=== PATIENT | male | born 1965 | race Caucasian/White ===

== ENCOUNTER → 2017-08-26 | Day surgery (SDC) | payer OTHER ==
[2017-08-25 12:04] VITALS: BMI 38.7
[2017-08-26 07:51] VITALS: BP 129/96; TEMP 96.8
--- NOTE | 2017-08-26 10:19 | RAD ---
THORACIC AND CERVICAL MYELOGRAM INDICATION: Thoracic and cervical radiculopathy. PROCEDURE: After informed consent had been obtained, the patient was escorted to the interventional suite and pl aced on the procedural table. [employer] imaging was performed. The patient was placed into a prone posi tion. Skin on the low back was then prepped and draped in the standard sterile fashion and topical a nd regional soft tissue anesthesia was achieved with 1% lidocaine and sodium bicarbonate. L4-5 inte rlaminar approach was selected, and a 20-gauge needle was uneventfully advanced into the thecal sac w ith clear color CSF. Subsequently, 12 cc Isovue-M 300 was instilled into the thecal sac under real t danay fluoroscopy. Appropriate opacification of thecal sac demonstrated with imaging stored for [facility]. The needle was then removed from the patient. The patient tolerated the procedure well and was then transferred to CT to undergo subsequent myelogram. Reference separate report for reese jennings. IMPRESSION: Technically successful thoracic and cervical myelogram as detailed above. POS: [facility]
--- NOTE | 2017-08-26 11:08 | CT ---
POST MYELOGRAM CERVICAL SPINE CT: HISTORY: Cervical radiculopathy. COMPARISON: None. CORRELATION: A noncontrast cervical spine CT 02/24/17. TECHNIQUE: Post myelogram cervical spine CT is performed in the axial plane. Reformatted images are submitted f or interpretation. FINDINGS: Cervical spine vertebral body height is maintained. There is no fracture. Straightening of normal c ervical lordosis is noted. 2.1 mm of anterolisthesis of C3 upon C4. Appropriate articulation of the lateral masses of C1 and C2 as well as the facets. Odontoid process is intact. Visualized soft tissue neck structures are unremarkable. Limited evaluation of the oral cavity due t o dental amalgam artifact. Epiglottis has a normal caliber. C2-C3: No significant disk-osteophyte complex. No significant central canal stenosis. Mild right f oraminal narrowing. Left foramen is patent. There is right facet hypertrophy. C3-C4: No significant disk-osteophyte complex. No significant central canal stenosis. Foramen are patent. C4-C5: Broad-based disk-osteophyte complex abuts the thecal sac. Ventral subarachnoid space is main tained. Mild central canal stenosis. Degenerative changes of bilateral uncovertebral joints result in moderate bilateral foraminal narrowing. C5-C6: No significant disk-osteophyte complex. No significant central canal stenosis. Foramina are patent. C6-C7: No significant disk-osteophyte complex. No significant central canal stenosis. Right neural foramina is patent. Mild left foraminal narrowing. C7-T1: No significant disk-osteophyte complex. No significant central canal stenosis. The neural f oramen are patent. IMPRESSION: Degenerative change of the cervical spine as above. No high-grade central canal stenosis. There are varying degrees of foraminal narrowing as detailed above. POS: [facility]
--- NOTE | 2017-08-26 11:19 | CT ---
THORACIC SPINE CT MYELOGRAM CT THORACIC SPINE WITH CONTRAST: CLINICAL HISTORY: Back pain, radiculopathy, rib pain (M54.12; M54.14). FINDINGS: T1-2, T2-3, T3-4, T4-5, and T5-6 levels are unremarkable. T6-7: There is a small central disk protrusion without cord deformity. Mild effacement of ventral t hecal sac. T7-8: There is a left asymmetric disk-osteophyte complex with mild flattening of the left ventral he micord and mild central canal stenosis. T8-9: Central disk protrusion does produce central mass effect upon the ventral thoracic spinal cord mild to moderate in degree. T9-10: Mild left disk-osteophyte complex without significant cord deformity. T10-11: Mild ventral CHF effacement and slight left hemicord effacement by left asymmetric disk-oste ophyte. T11-12: No high-grade central canal or neural foraminal stenosis. T12-L1: No significant central canal stenosis. Throughout the thoracic spine there is no high-grade osseous compromise of the neural foramen. Cystic density is present, exophytic from the lateral confines of the right kidney, incompletely asse ssed by noncontrast CT imaging. Evidence of prior cholecystectomy. Small hiatal hernia. IMPRESSION: Multilevel degenerative change throughout the thoracic spine as outlined above with multilevel areas of disk protrusion and disk-osteophyte complex effacing the ventral aspect of the thoracic spinal cor d as discussed above. POS: [facility]
== END ==
LOC: CT 06:40
PROVIDERS: ATTEND Neurological Surgery
PROC: B02B1ZZ Computerized Tomography (CT Scan) of Spinal Cord using Low Osmolar Contrast (ICD-10-PCS; principal; 2017-08-26)
DX: M51.14 Intervertebral disc disorders with radiculopathy, thoracic region (principal); M54.12 Radiculopathy, cervical region; M48.02 Spinal stenosis, cervical region; Z88.8 Allergy status to other drugs, medicaments and biological substances
CPT/HCPCS: 62305; 72126; 72129

== ENCOUNTER 2017-08-28 13:27 | Emergency (ER) | payer OTHER, SELFPAY ==
[2017-08-28 13:52] LABS: #Basophils 0.1 thou/uL (0.0-0.2); #Eosinphils 0.1 thou/uL (0.0-0.7); #Lymphocytes 1.8 thou/uL (1.20-3.40); #Monocytes 0.7 thou/uL (0.11-0.59); #Neutrophils 4.3 thou/uL (1.40-6.50); %Basophils 1.3 % (0.0-1.0); %Eosinophils 1.3 % (0.0-10.0); %Lymphocytes 25.9 % (21.0-51.0); %Monocytes 9.8 % (0.0-10.0); %Neutrophils 61.7 % (42.0-75.0); Hemoglobin 17.8 g/dL (14.0-18.0); Mean Corpuscular HGB CONC 34.2 g/dL (32.0-36.0); Mean Corpuscular Hemoglobin 30.2 pg (27.0-31.0); Mean Corpuscular Volume 88.2 fl (80.0-94.0); Mean Platelet Volume 7.5 fL (7.4-10.4); Platelet Count 210 thou/uL (130-400); RBC Distribution Width 12.5 % (11.5-14.5); Red Blood Cell (RBC) Count 5.88 mill/uL (4.70-6.10); White Blood Cell (WBC) Count 6.9 thou/uL (4.8-10.8)
[2017-08-28 14:15] LABS: ALT (SGPT) 147 U/L (8-55); AST (SGOT) 66 U/L (5-34); Albumin 4.1 g/dL (3.5-5.0); Alkaline Phosphatase 77 U/L (40-150); Anion Gap 12 mmol/L (10-20); BUN (Urea Nitrogen) 11 mg/dL (8.4-25.7); Bilirubin, Total 1.1 mg/dL (0.2-1.2); Calc. Creatinine Clearance 0 mL/min (70-130); Calcium 9.5 mg/dL (7.8-10.44); Carbon Dioxide 31 mmol/L (22-29); Chloride 99 mmol/L (98-107); Estimated GFR-MDRD Greater than 90; Globulin 3.3 g/dL (2.4-3.5); Glucose 352 mg/dL (70-105); Potassium 3.8 mmol/L (3.5-5.1); Protein, Total 7.4 g/dL (6.0-8.3); Sodium 138 mmol/L (136-145)
[2017-08-28] MEDS ORDERED: Acetaminophen 500 MG TAB ONE (14:25)
[2017-08-28] MEDS ORDERED: diphenhydrAMINE 50 MG/ML VIAL ONE (14:25)
[2017-08-28] MEDS ORDERED: Metoclopramide HCl 10 MG/2 ML VIAL ONE (14:25)
[2017-08-28] MEDS ORDERED: methylPREDNISolone Sod Succ/PF 125 MG/2 ML VIAL ONE (16:31)
[2017-08-28] MEDS ORDERED: Magnesium Sulfate 2 GM/100 ML BAG ONE (16:32)
[2017-08-28] MEDS ORDERED: HYDROmorphone 0.5 MG/0.5 ML SYRINGE ONE (17:35)
[2017-08-28] MEDS ORDERED: Diazepam 5 MG TAB ONE ×2 (20:38)
== END 2017-08-28 20:40 | disposition home or self-care (01) ==
LOC: ERS 13:27
DX: G97.1 Other reaction to spinal and lumbar puncture (principal); Z79.891 Long term (current) use of opiate analgesic; Z79.899 Other long term (current) drug therapy
CPT/HCPCS: 80053; 85025; 96365; 96367; 96375; J1170; J1200; J2765; J2930; J3475

== ENCOUNTER → 2017-08-30 | Day surgery (SDC) | payer OTHER | LOC: SDC/OP 08:30 | PROVIDERS: ATTEND Anesthesiology | DX: G97.1 Other reaction to spinal and lumbar puncture (principal); F32.9 Major depressive disorder, single episode, unspecified; E66.9 Obesity, unspecified; Z22.8 Carrier of other infectious diseases; Z79.899 Other long term (current) drug therapy; Z88.6 Allergy status to analgesic agent; Z88.8 Allergy status to other drugs, medicaments and biological substances; Z98.890 Other specified postprocedural states; Z87.891 Personal history of nicotine dependence ==

== ENCOUNTER 2017-09-02 08:49 | Day surgery (SDC) | payer OTHER | END 2017-09-02 10:08 | disposition home or self-care (01) | LOC: SDC/OP 08:49 | PROVIDERS: ATTEND Anesthesiology | PROC: 3E0S3GC Introduction of Other Therapeutic Substance into Epidural Space, Percutaneous Approach (ICD-10-PCS; principal; 2017-09-02) | DX: G97.1 Other reaction to spinal and lumbar puncture (principal); F32.9 Major depressive disorder, single episode, unspecified; E66.9 Obesity, unspecified; Z88.8 Allergy status to other drugs, medicaments and biological substances; Z87.891 Personal history of nicotine dependence; Z82.49 Family history of ischemic heart disease and other diseases of the circulatory system | CPT/HCPCS: 62272 ==

== ENCOUNTER 2017-09-19 10:41 | Outpatient (CLI) | payer OTHER ==
--- NOTE | 2017-09-19 12:41 | RAD ---
THREE VIEWS CERVICAL SPINE: 09/19/2017 HISTORY: Neck pain. Cervicalgia. COMPARISON: None. TECHNIQUE: Lateral neutral flexion and extension radiographs of the cervical spine provided. FINDINGS: There is mild disk space narrowing and anterior osteophyte formation at C4-C5, C5-C6, and C6-C7. Neutral imaging demonstrates no anterolisthesis or retrolisthesis. The C7-T1 level is not visualized on the neutral view. On the flexion imaging, there is mild anterol isthesis of C3 on C4, measuring approximately 3 mm. There is no anterolisthesis or retrolisthesis up on extension. No prevertebral soft tissue abnormality. IMPRESSION: 1. Three millimeter anterolisthesis of C3 on C4 noted with flexion. 2. Cervical spine degenerative change, as detailed above. POS: [facility]
== END 2017-09-19 10:42 | disposition home or self-care (01) ==
LOC: TBSIIMAG 10:41
PROVIDERS: ATTEND Neurological Surgery
DX: M54.2 Cervicalgia (principal); M47.892 Other spondylosis, cervical region; M43.12 Spondylolisthesis, cervical region
CPT/HCPCS: 72040

== ENCOUNTER 2020-04-03 09:55 | Outpatient (CLI) | payer OTHER ==
[2020-04-04 11:18] LABS: SARS-CoV-2 MS2 Positive; SARS-CoV-2 N Gene Negative; SARS-CoV-2 S Gene Negative; SARS-CoV-2 by NAA Not Detected (NotDetected); SARS-CoV-2 orf1ab Negative
== END 2020-04-03 09:56 | disposition home or self-care (01) ==
LOC: LABBT 09:55
PROVIDERS: ATTEND Neurological Surgery
DX: M54.12 Radiculopathy, cervical region (principal); Z20.828 Contact with and (suspected) exposure to other viral communicable diseases
CPT/HCPCS: 87635; U0003

== ENCOUNTER 2020-04-07 11:37 | Day surgery (SDC) | payer OTHER ==
[2020-04-04 09:18] VITALS: BMI 37.6
[~2020-04-07 11:37] MED LIST: PROPOFOL 200 MG/20 ML VIAL ONE
[2020-04-07] MEDS ORDERED: Midazolam HCl 2 mg/2 ml Vial ONE (12:50)
--- NOTE | 2020-04-07 14:06 | MRI ---
MRI cervical spine noncontrast: 04/07/2020 HISTORY: 55-year-old male with cervicalgia and cervical radiculopathy. FINDINGS: Cervical spinal cord is normal in size and signal. Vertebral body heights are maintained. Mild disc space narrowing at C4-5. No high-grade disc space narrowing at any level. No major subluxat ion. Ankylosis of right C2-3 facet joints. Mild and moderate facet DJD at various levels, left greater lizzy n right. No major bone marrow signal abnormality. Mild broad-based disc protrusions encroach slightly upon the anterior aspect of spinal canal at multi ple levels. C1-2: No high-grade central spinal canal stenosis. C2-3: No high-grade central spinal canal stenosis. Moderate to severe right facet hypertrophy and sma ll right uncinate process osteophytes cause mild to moderate right neural foraminal stenosis. Mild left neural foraminal stenosis. C3-4: No central spinal canal stenosis. No high-grade neural foraminal stenosis. C4-5: Moderate size bilateral uncinate process osteophytes encroach upon bilateral neural foramina, c ausing moderate right neural foraminal stenosis and severe left neural foraminal stenosis. C5-6: No central spinal canal stenosis. Small bilateral uncinate process osteophytes. Mild bilateral neural foraminal stenosis. C6-7: No central spinal canal stenosis. Moderate size bilateral uncinate process osteophytes. Mild ri ght neural foraminal stenosis. Moderate to severe left neural foraminal stenosis. C7-T1: No central spinal canal stenosis. Moderate bilateral neural foraminal stenosis. IMPRESSION: 1.) Mild cervical spondylosis consisting of low-grade bilateral facet osteoarthrosis and mild degener ative disc changes. 2) no central spinal canal stenosis at any level. 3) neural foraminal stenosis at several levels. 4) ankylosis of the right C2-3 facet joints..
== END 2020-04-07 15:00 | disposition home or self-care (01) ==
LOC: SDC/OP 11:37
PROVIDERS: ATTEND Neurological Surgery
DX: M47.22 Other spondylosis with radiculopathy, cervical region (principal); M48.02 Spinal stenosis, cervical region; Z88.6 Allergy status to analgesic agent; Z88.8 Allergy status to other drugs, medicaments and biological substances
CPT/HCPCS: 72141; J2250; J2704

== ENCOUNTER 2021-05-18 19:30 | Outpatient (CLI) | payer OTHER | END 2021-05-18 19:31 | disposition home or self-care (01) | LOC: SLEEPLAB 19:30 | PROVIDERS: ATTEND Nurse Practitioner Family | DX: G47.33 Obstructive sleep apnea (adult) (pediatric) (principal); R53.83 Other fatigue; E66.9 Obesity, unspecified | CPT/HCPCS: 95811 ==

== ENCOUNTER 2023-11-30 16:08 | Inpatient (IN) | payer SELFPAY ==
[~2023-11-30 16:08] MED LIST changes: +Iopamidol-370 76% 500 ML MDV (1 ML CHARGE) ONE; -PROPOFOL 200 MG/20 ML VIAL ONE
[2023-11-30 16:32] LABS: Actual Bicarbonate (HCO3a) 22.9 mEq/L (22-28); Analyzer IN Cardio ER; Base Excess (BEa) -0.5 mEq/L (-2.0 to +3.0); CO2 Tension 34.4 mmHg (35.0-45.0); Calcium, Ionized (arterial) 1.13 mmol/L (1.12-1.30); Carboxyhemoglobin (COHb) 0.3 gm% (0.0-3.0); Hematocrit-ABG 46 % (42.0-52.0); Hemoglobin (Hb) 15.5 g/dL (14.0-18.0); O2 Tension (PaO2), arterial 74.9 mmHg (80.0-100.0); Potassium - ABG Lab 3.85 mmol/L (3.70-5.30); pH, Arterial 7.441 (7.35-7.45)
[2023-11-30 16:39] LABS: Puncture Site RRA
[2023-11-30 16:42] LABS: #Basophils Less than 0.03 10x3/uL (0.0-0.2); %Basophils 0.3 % (0.0-1.0); %Lymphocytes 15.4 % (21.0-51.0); %Monocytes 11.3 % (0.0-10.0); %Neutrophils 69.8 % (42.0-75.0); Hematocrit 45.5 % (42.0-52.0); Hemoglobin 15.1 g/dL (14.0-18.0); Mean Corpuscular HGB CONC 33.2 g/dL (32.0-36.0); Mean Corpuscular Hemoglobin 29.9 pg (27.0-31.0); Mean Corpuscular Volume 90.1 fL (78.0-98.0); Mean Platelet Volume 10.1 fL (7.4-10.4); Platelet Count 160 10x3/uL (130-400); RBC Distribution Width 13.6 % (11.5-14.5); Red Blood Cell (RBC) Count 5.05 mill/uL (4.70-6.10)
[2023-11-30 16:56] LABS: Lipase 26 U/L (8-78)
[2023-11-30 16:58] LABS: Acetaminophen Less than 10 mcg/mL (10.0-30.0); Alcohol Less than 10.0 mg/dL (Less than 10); Salicylate Less than 8.0 mg/dL (15.0-30.0)
[2023-11-30 17:00] LABS: ALT (SGPT) 14 U/L (8-55); AST (SGOT) 15 U/L (5-34); Alkaline Phosphatase 55 U/L (40-110); Anion Gap 16 mmol/L (10-20); BUN (Urea Nitrogen) 23 mg/dL (8.4-25.7); Bilirubin, Total 0.5 mg/dL (0.2-1.2); CK (CPK) 52 U/L (30-200); Calc. Creatinine Clearance 0 mL/min (70-130); Calcium 8.5 mg/dL (7.8-10.44); Carbon Dioxide 20 mmol/L (22-29); Chloride 107 mmol/L (98-107); Estimated GFR 66; Globulin 2.7 g/dL (2.4-3.5); Glucose 114 mg/dL (70-105); Potassium 3.9 mmol/L (3.5-5.1); Protein, Total 5.7 g/dL (6.0-8.3); Sodium 139 mmol/L (136-145)
[2023-11-30 17:02] LABS: Troponin I Less than 0.010 ng/mL (< 0.028)
[2023-11-30] MEDS ORDERED: Dexamethasone 10 MG/ML VIAL ONE (17:04)
[2023-11-30] MEDS ORDERED: LevoFLOXacin 750 mg/D5W 150 ml Premix Bag ONE (17:05)
[2023-11-30] MEDS ORDERED: Sodium Chloride 0.9% 100 ML ONE (17:05)
[2023-11-30] MEDS ORDERED: Cefepime 2 GM VIAL ONE (17:05)
[2023-11-30 17:41] LABS: Influenza A by NAA Not Detected (NotDetected); Influenza B by NAA Not Detected (NotDetected); SARS-CoV-2 NAA Rapid Test Not Detected (NotDetected)
[2023-11-30] MEDS ORDERED: Ondansetron ODT 4 MG TAB PO PRN (18:49)
[2023-11-30] MEDS ORDERED: Acetaminophen 650 MG Suppository PR PRN (18:49)
[2023-11-30] MEDS ORDERED: Calcium Carbonate 500 MG ChewTAB PO PRN (18:49)
[2023-11-30] MEDS ORDERED: Dextrose 50% Abboject 50 ML SYRINGE SLOW IVP PRN (18:49)
[2023-11-30] MEDS ORDERED: Glucagon 1 MG/ML KIT IM PRN (18:49)
[2023-11-30] MEDS ORDERED: Ondansetron PF 4 MG/2 ML Vial IVP PRN (18:49)
[2023-11-30] MEDS ORDERED: Bisacodyl 10 MG SUPP PR PRN (18:49)
[2023-11-30] MEDS ORDERED: Dextrose 5% in Water 1,000 ML IV PRN (18:49)
[2023-11-30] MEDS ORDERED: Albuterol 2.5 MG (3 mL) NEB NEB PRN (18:54)
[2023-11-30] MEDS ORDERED: Benzonatate 100 MG CAP PO PRN (18:55)
[2023-11-30] MEDS: Ipratropium/Albuterol 3 ML NEB NEB SCH (19:00)
[2023-11-30] MEDS ORDERED: Electrolyte Replacement Protocol 1 EACH FS SCH (19:00)
[2023-11-30 19:39] VITALS: BMI 37.1
[2023-11-30 19:42] LABS: Magnesium 2.1 mg/dL (1.6-2.6)
[2023-11-30 19:49] LABS: Troponin I Less than 0.010 ng/mL (< 0.028)
[2023-11-30] MEDS: Vancomycin (BATCH) 2.5 GM in Premix 1 BAG IVPB SCH (22:25)
[2023-11-30 22:38] LABS: Troponin I Less than 0.010 ng/mL (< 0.028)
[2023-11-30] MEDS: Famotidine/PF 20 mg/2ml Vial SLOW IVP SCH (22:46)
[2023-11-30] MEDS: methylPREDNISolone Sod Succ 40 MG VIAL IVP SCH (22:46)
[2023-11-30] MEDS: Lorazepam 1 MG TAB PO PRN (22:46)
[2023-11-30] MEDS: Sodium Chloride 0.9% 1,000 ML IV SCH (22:46)
[2023-11-30] MEDS: Zolpidem Tartrate 5 MG TAB PO PRN (22:46)
[2023-12-01] MEDS: Vancomycin HCl 750 MG in Sodium Chloride 0.9% 250 ML 250 ML IVPB SCH (02:51)
[2023-12-01 04:22] LABS: #Basophils Less than 0.03 10x3/uL (0.0-0.2); #Eosinphils Less than 0.03 10x3/uL (0.0-0.7); %Basophils 0.1 % (0.0-1.0); %Lymphocytes 4.7 % (21.0-51.0); %Monocytes 1.1 % (0.0-10.0); %Neutrophils 92.3 % (42.0-75.0); Hematocrit 47.4 % (42.0-52.0); Hemoglobin 15.9 g/dL (14.0-18.0); Mean Corpuscular HGB CONC 33.5 g/dL (32.0-36.0); Mean Corpuscular Hemoglobin 29.8 pg (27.0-31.0); Mean Corpuscular Volume 88.8 fL (78.0-98.0); Mean Platelet Volume 10.7 fL (7.4-10.4); Platelet Count 182 10x3/uL (130-400); RBC Distribution Width 13.5 % (11.5-14.5); Red Blood Cell (RBC) Count 5.34 mill/uL (4.70-6.10)
[2023-12-01 04:39] LABS: Vancomycin, Random 25.3 ug/mL (See Comment)
[2023-12-01 04:47] LABS: Anion Gap 14 mmol/L (10-20); BUN (Urea Nitrogen) 19 mg/dL (8.4-25.7); Calc. Creatinine Clearance 139 mL/min (70-130); Calcium 8.9 mg/dL (7.8-10.44); Carbon Dioxide 23 mmol/L (22-29); Chloride 106 mmol/L (98-107); Estimated GFR 98; Glucose 167 mg/dL (70-105); Potassium 4.9 mmol/L (3.5-5.1); Sodium 138 mmol/L (136-145)
[2023-12-01] MEDS: Cefepime 2 GM in Sodium Chloride 0.9% 100 ML IVPB SCH (05:58)
[2023-12-01] MEDS: Vancomycin 1 GM in Premix 1 BAG IVPB SCH (06:04)
[2023-12-01] MEDS: BuPROPion XL 150 MG ER.TAB PO SCH (08:30)
[2023-12-01] MEDS: Pioglitazone HCl 15 MG TAB PO SCH (08:30)
[2023-12-01] MEDS: Benzonatate 100 MG CAP PO SCH (09:03)
[2023-12-01] MEDS: Lorazepam 1 MG TAB PO PRN (09:03)
[2023-12-01 11:13] LABS: Troponin I Less than 0.010 ng/mL (< 0.028)
[2023-12-01] MEDS: Acetaminophen 325 MG TAB PO PRN (11:51)
[2023-12-01] MEDS: HumaLOG 300 UNITS/3 ML VIAL SC PRN ×2 (16:45→20:54)
[2023-12-02 04:24] LABS: #Basophils Less than 0.03 10x3/uL (0.0-0.2); #Eosinphils Less than 0.03 10x3/uL (0.0-0.7); %Basophils 0.2 % (0.0-1.0); %Lymphocytes 5.8 % (21.0-51.0); %Neutrophils 84.7 % (42.0-75.0); Hematocrit 41.4 % (42.0-52.0); Hemoglobin 13.8 g/dL (14.0-18.0); Mean Corpuscular HGB CONC 33.3 g/dL (32.0-36.0); Mean Corpuscular Hemoglobin 29.9 pg (27.0-31.0); Mean Corpuscular Volume 89.8 fL (78.0-98.0); Platelet Count 166 10x3/uL (130-400); RBC Distribution Width 13.7 % (11.5-14.5); Red Blood Cell (RBC) Count 4.61 mill/uL (4.70-6.10)
[2023-12-02 04:41] LABS: Anion Gap 12 mmol/L (10-20); BUN (Urea Nitrogen) 21 mg/dL (8.4-25.7); Calc. Creatinine Clearance 152 mL/min (70-130); Calcium 8.1 mg/dL (7.8-10.44); Carbon Dioxide 24 mmol/L (22-29); Chloride 110 mmol/L (98-107); Estimated GFR 101; Glucose 140 mg/dL (70-105); Potassium 3.9 mmol/L (3.5-5.1); Sodium 142 mmol/L (136-145)
[2023-12-02] MEDS: Senokot S 8.6-50 MG TAB PO PRN (11:55)
[2023-12-02] MEDS: LevoFLOXacin 750 MG TAB PO SCH (15:53)
[2023-12-02] MEDS: guaiFENesin ER 600 MG TAB PO SCH ×2 (17:22→21:14)
[2023-12-02] MEDS ORDERED: Vancomycin (BATCH) 1.5 GM in Premix 1 BAG IVPB SCH (21:00)
[2023-12-02] MEDS: Famotidine 20 MG TAB PO SCH (21:14)
[2023-12-03] MEDS: LevoFLOXacin 750 MG TAB PO SCH (04:44)
[2023-12-03 08:14] VITALS: BP 132/85; TEMP 97.9
[2023-12-03] MEDS: Amlodipine 10 MG TAB PO SCH (08:42)
== END 2023-12-03 10:43 | disposition home or self-care (01) | DRG 189 ==
LOC: ERS 16:08 → 2SW 18:02 → OBSVTOIN 12-01 15:44
PROVIDERS: ADMIT Internal Medicine; ATTEND Family Medicine
DX: J96.01 Acute respiratory failure with hypoxia (principal); G93.41 Metabolic encephalopathy; J20.9 Acute bronchitis, unspecified; F41.9 Anxiety disorder, unspecified; I10 Essential (primary) hypertension; E66.01 Morbid (severe) obesity due to excess calories; E78.5 Hyperlipidemia, unspecified; F32.A Depression, unspecified; G89.29 Other chronic pain; G47.00 Insomnia, unspecified; I95.9 Hypotension, unspecified; E11.65 Type 2 diabetes mellitus with hyperglycemia; G47.33 Obstructive sleep apnea (adult) (pediatric); Z90.49 Acquired absence of other specified parts of digestive tract; Z68.37 Body mass index [BMI] 37.0-37.9, adult; Z88.8 Allergy status to other drugs, medicaments and biological substances; Z79.899 Other long term (current) drug therapy; Z79.52 Long term (current) use of systemic steroids; Z79.84 Long term (current) use of oral hypoglycemic drugs; Z87.891 Personal history of nicotine dependence
CPT/HCPCS: 36415; 36416; 36600; 70450; 71045; 71275; 80048; 80053; 80202; 80307; 82140; 82550; 82805; 83605; 83690; 83735; 83880; 84146; 84443; 84484; 85025; 87040; 87070; 87081; 87205; 93005; 93010; 93970; 94640; 96375; 96376; G0378; J0692; J1100; J1815; J1956; J2920; J3370; J3490; J7050; J7620; Q9967; S0028

== ENCOUNTER 2025-05-09 08:25 | Outpatient (CLI) | payer OTHER ==
[2025-05-09 10:27] LABS: #Basophils Less than 0.03 10x3/uL (0.0-0.2); #Eosinophils 0.07 10x3/uL (0.0-0.7); #Monocytes 0.73 10x3/uL (0.11-0.59); #Neutrophils 4.28 10x3/uL (1.40-6.50); %Basophils 0.3 % (0.0-1.0); %Eosinophils 1.1 % (0.0-10.0); %Lymphocytes 19.3 % (21.0-51.0); %Monocytes 11.5 % (0.0-10.0); %Neutrophils 67.2 % (42.0-75.0); Hematocrit 48.4 % (42.0-52.0); Hemoglobin 15.8 g/dL (14.0-18.0); Mean Corpuscular Hemoglobin 29.1 pg (27.0-31.0); Mean Corpuscular Volume 89.1 fL (78.0-98.0); Platelet Count 215 10x3/uL (130-400); Red Blood Cell (RBC) Count 5.43 mill/uL (4.70-6.10); White Blood Cell (WBC) Count 6.37 10x3/uL (4.8-10.8)
[2025-05-09 10:50] LABS: Anion Gap 13 mmol/L (10-20); BUN (Urea Nitrogen) 16 mg/dL (8.4-25.7); Calc. Creatinine Clearance 0 mL/min (70-130); Calcium 9.4 mg/dL (7.8-10.44); Carbon Dioxide 26 mmol/L (22-29); Chloride 106 mmol/L (98-107); Glucose 107 mg/dL (70-105); Potassium 4.3 mmol/L (3.5-5.1); Sodium 141 mmol/L (136-145)
== END 2025-05-09 08:26 | disposition home or self-care (01) ==
LOC: LABBT 08:25
PROVIDERS: ATTEND Orthopaedic Surgery
DX: Z01.818 Encounter for other preprocedural examination (principal); R22.32 Localized swelling, mass and lump, left upper limb
CPT/HCPCS: 80048; 85025; 93005; 93010